=== PATIENT | female | born 1960 | race Two or more races ===

== ENCOUNTER 2019-07-21 16:07 | Outpatient (CLI) | payer OTHER, SELFPAY ==
--- NOTE | ~2019-07-21 | MR_ITS ---
EXAMINATION: MR knee LT wo con DATE: 07/21/2019 17:08 INDICATION: Left knee pain. TECHNIQUE: Magnetic resonance imaging (MRI) of the left knee was performed without intravenous contra st. Sequences included axial PD-weighted FS FSE, coronal PD-weighted FSE and PD-weighted FS FSE, sagi ttal PD-weighted FSE, and sagittal T2-weighted FS FSE. COMPARISON: Left knee radiographs 04/04/2019 FINDINGS: Medial compartment: Medial meniscus is normal. There is cartilage surface irregularity of tibial condyle. There is shallo w partial-thickness cartilage loss of femoral condyle involving the central articular surface. Lateral compartment: Lateral meniscus is normal. Lateral compartment cartilage is normal. Patellofemoral compartment: There is cartilage surface irregularity of patellar medial and lateral facets and median ridge. There is cartilage surface irregularity of medial trochlea. Ligaments and tendons: There is thickening and increased signal involving anterior cruciate ligament, consistent with mucoid degeneration. Posterior cruciate ligament is normal. Medial collateral ligament is normal. There are changes of prior sprain of fibular collateral ligament characterized by thickening and increased sig nal intensity proximally. The patellar tendon is normal. Fluid: There is a small knee joint effusion. There is a small Morse's cyst. There is mild superficial infrap atellar bursitis. IMPRESSION: 1. 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 2. Small knee joint effusion. 3. Small Morse's cyst. Reviewed, dictated and finalized at location A.
== END 2019-07-21 16:08 | disposition home or self-care (01) ==
LOC: ANHIMG 16:19
PROVIDERS: PCP Physician Assistant; Visit Provider Orthopaedic Surgery
DX: M25.462 Effusion, left knee (principal); M71.22 Synovial cyst of popliteal space [Baker], left knee
CPT/HCPCS: 73721

== ENCOUNTER 2020-04-17 10:00 | Outpatient (RCR) | payer OTHER, SELFPAY ==
--- NOTE | 2020-03-20 11:30 | PTOPEVAL ---
Thank you for referring Lexi Martinez to [facility].? The patient is scheduled to be seen for therapy? 2 x/week for 6-8 weeks. Please review, sign, date and return this plan of care WALTER. I agree with and certify that the following plan of care is medically necessary. Referring Physician Date Referring Provider: Dr. Blayne Morse MD *PT Outpatient Evaluation Start: 03/20/20 08:14 Freq: Status: Active Protocol: Document 03/20/20 08:18 CHARI (Rec: 03/20/20 09:07 CHARI [id number]) Therapy Assessment Status Assessment Status Assessment Status Evaluation Outpatient Past Medical History Past Medical History Source of Past Medical History Patient,Recalled from Previous Visit, Confirmed with Patient /Family Neurological History Hx Neurological Disorders No Significant History Cardiovascular History Hx Hypertension Yes Respiratory History Hx Respiratory Disorders No Significant History Musculoskeletal History Hx Fractures Yes: right ankle 10/08/19 Hx Orthopedic Surgery Yes: s/p ORIF 10/26/19 Hematological History Hx Hematological Disorders No Significant History Endocrine History Hx Endocrine Disorders No Significant History Evaluation Information Problem Diagnosis right trimalleolar fracture Onset October 07 Cause fall Additional Evaluation Detail s/p ORIF 10/26/19. She is was originally using walker, crutches, knee scooter ,but currently not using a device. She was initially in a walking boot. Subjective Information She reports she was attempting Query Text:As Reported By Patient/ to clean windows when she Family fell. She is limited with her ability to stand, walk and perform daily task. She works at home but is unable to perform her normal household activities. She elevates her leg most of the day. She is wearing compression sock on right LE for the swelling. She will ice the ankle daily. Prior Level of Function Activity Level (Last 3 Months) Activity of Daily Living Ability Independent Indoor/Home Mobility Independent Community Mobility Independent Stairs Ability Independent Cooking Yes Cleaning
--- NOTE | 2020-04-13 09:30 | PCPTNOTE ---
Patient called & cancelled scheduled appointment this date due to no transportation.
--- NOTE | 2020-04-17 11:09 | PTOPEVAL ---
Thank you for referring Lexi Martinez to [facility].? Pt has received 7 therapy visits to address her ankle impairments as a result of her ankle surgery. She demonstrates improved ankle range, leg strength, and improved functional mobility. She has achieved 80% of her therapy goals at this time. Pt has requested to continue with her HEP due to limitations with ability to attend therapy visits. Will hold chart open for 30 days, then DC if she does not return. Please review, sign, date and return this plan of care WALTER. I agree with and certify that the following plan of care is medically necessary. Referring Physician Date Referring Provider: Dr. Blayne Morse MD *PT Outpatient Evaluation Start: 03/20/20 08:14 Freq: Status: Active Protocol: Document 04/17/20 10:00 CAP (Rec: 04/17/20 10:50 CAP [id number]) Therapy Assessment Status Assessment Status Assessment Status Re-evaluation Outpatient Past Medical History Past Medical History Source of Past Medical History Patient,Recalled from Previous Visit, Confirmed with Patient /Family Neurological History Hx Neurological Disorders No Significant History Cardiovascular History Hx Hypertension Yes Respiratory History Hx Respiratory Disorders No Significant History Musculoskeletal History Hx Fractures Yes: right ankle 10/08/19 Hx Orthopedic Surgery Yes: s/p ORIF 10/26/19 Hematological History Hx Hematological Disorders No Significant History Endocrine History Hx Endocrine Disorders No Significant History Evaluation Information Problem Diagnosis right trimalleolar fracture Onset October 07 Cause fall Additional Evaluation Detail s/p ORIF 10/26/19. She is was originally using walker, crutches, knee scooter ,but currently not using a device. She was initially in a walking boot. Subjective Information She reports improved ability Query Text:As Reported By Patient/ to perform standing, walkin Family and perform daily task. She is wearing her compression sock on LE's. She is performing HEP 100 reps. She is able to perform community mobility without restrictions. She will ice the ankle daily. Pain Assessment Timing of Pain Assessment Timing of Pain Assessment Re-assessment Pain Scale Pain Scale Used Numeric (1 - 10) Self Report Pain Assessment Left Ankle(s) Reported Pain Level 3 Pain Description
== END 2020-06-15 09:34 | disposition home or self-care (01) ==
LOC: ANHPT 10:00
PROVIDERS: PCP Physician Assistant
DX: S82.851D Displaced trimalleolar fracture of right lower leg, subsequent encounter for closed fracture with routine healing (principal)
CPT/HCPCS: 97110; 97112; 97140; 97162; 97530

== ENCOUNTER 2022-09-24 15:33 | Emergency (ER) | payer OTHER, SELFPAY ==
[2022-09-24] VITALS (8 sets, daily range): BP systolic 109–146; BP diastolic 67–78; PULSE 72–79; RESP 15–18; TEMP 36.5; O2SAT 96–100
--- NOTE | 2022-09-24 15:38 | PC.NURSE ---
Patient reports her L eye has been bothering her as well since Thursday.
--- NOTE | 2022-09-24 17:05 | ED.HA ---
HPI - Headache General Chief Complaint: Headache Stated Complaint: LEFT SIDED HEADACHE/ LEFT EYE HEAVINESS Time Seen by Provider: 09/24/22 16:17 History of Present Illness HPI Narrative: Patient is a 61-year-old female with a history of hypertension, diabetes presenting with a headache. Patient states that she had a left-sided headache over the weekend that resolved for couple of days. States that she had several episodes of diarrhea 2 days ago. States this is resolved. Today she again had a left-sided headache and her left eye felt heavy. She took ibuprofen and Tylenol without relief. Her daughter called her PCP who advised that she come to the ER. No numbness or weakness, facial droop, speech changes, vision changes, chest pain, shortness of breath, abdominal pain, nausea or vomiting, leg swelling. Related Data Allergies Allergy/AdvReac Type Severity Reaction Status Date / Time No Known Allergies Allergy Unknown Unverified 03/17/17 03:06 Review of Systems Review of Systems: All systems reviewed & are unremarkable except as noted in HPI and below PMFSH Social History Social History Smoking status: Never smoker Alcohol intake: never Exam Narrative: GENERAL: Well-appearing, well-nourished, and in no acute distress. HEAD: Normocephalic, atraumatic. EYES: PERRLA and EOMI. ENT: Nares clear, no rhinorrhea or epistaxis. Mucous membranes moist. NECK: Supple. CHEST: No respiratory distress. HEART: Regular rate and rhythm ABDOMEN: Soft, nontender, nondistended EXTREMITIES: Normal range of motion. No edema. SKIN: Warm, dry, no rash. NEURO: No focal deficits. Alert and oriented x3. PSYCH: Normal mood and affect. Course Vital Signs Vital signs: Vital Signs Temperature 97.7 F 09/24/22 15:35 Pulse Rate 79 09/24/22 15:35 Respiratory Rate 16 09/24/22 15:35 Blood Pressure 146/72 H 09/24/22 15:35 Pulse Oximetry 99 09/24/22 15:35 Oxygen Delivery Room Air 09/24/22 15:35 Temperature 97.7 F 09/24/22 15:35 Pulse Rate 76 09/24/22 19:22 Respiratory Rate 15 09/24/22 19:22 Blood Pressure 122/78 09/24/22 19:22 Pulse Oximetry 100 09/24/22 19:22 Oxygen Delivery Room Air 09/24/22 15:35 MDM - Headache MDM Narrative Medical decision making narrative: Patient is a 61-year-old female presenting with a left-sided headache for 1 day. Patient is mildly hypertensive, otherwise vitals are within normal limits. Exam is unremarkable. Neurologically intact. Do not feel imaging is warranted at this time. We will start with fluids, Toradol. Blood work is unremarkable. No leukocytosis. Electrolytes are normal. Normal renal function. Patient states that her pain has resolved following the fluids and Toradol. States that she feels well other than feeling a bit cold. She feels comfortable going home. Advised that she follow-up closely with her PCP. Recommended she try to increase her fluid intake. Tylenol and ibuprofen for pain control. Strict return precautions given. Patient voiced understanding and is agreeable with plan. Discharged in stable condition. Differential Diagnosis Differential diagnosis: Likely migraine, headache and other (dehydration, viral infection) Medical Records Attestation: I reviewed the patient's medical records. Lab Data Attestation: I reviewed the patient's lab results. 09/24/22 17:13 09/24/22 17:13 Labs: Lab Results 09/24/22 Range/Units 17:13 WBC 4.7 (4.5-10.0) K/mm3 RBC 4.03 L (4.2-5.4) M/mm3 Hgb 12.0 (12.0-15.0) g/dL Hct 35.4 L (37.0-47.0) % MCV 87.8 (80-100) fl MCH 29.8 (26-34) pg MCHC 33.9 (32-36) g/dl RDW 13.3 (11.5-14.5) % Plt Count 198 (150-375) k/mm3 MPV 10.6 H (7.4-10.4) fl Immature Gran % (Auto) 1.3 H (0-0.5) % Neut % (Auto) 38.2 L (45.5-73.1) % Lymph % (Auto) 46.5 H (18.3-44.2) % Pershing % (Auto) 8.0 (2.6-
[2022-09-24] MEDS: SODIUM CHLORIDE 0.9% IV 1,000 ML 999 ML IV CONT (17:08)
[2022-09-24] MEDS: KETOROLAC 15 MG/ML VIAL (*BKC) IV PUSH (17:14)
[2022-09-24 17:23] LABS: Basophils Absolute Auto 0.1 K/mm3 (0.0-0.1); Basophils Percent Auto 1.1 % (0.2-1.2); Eosinophils Absolute Auto 0.2 K/mm3 (0-0.3); Eosinophils Percent Auto 4.9 % (0-4.4); Hematocrit 35.4 % (37.0-47.0); Immature Granulocyte Absolute 0.06 K/mm3 (0.00-0.031); Immature Granulocyte Percent A 1.3 % (0-0.5); Lymphocytes Percent Auto 46.5 % (18.3-44.2); Mean Corpuscular HGB Conc 33.9 g/dl (32-36); Mean Corpuscular Hemoglobin 29.8 pg (26-34); Mean Corpuscular Volume 87.8 fl (80-100); Mean Platelet Volume 10.6 fl (7.4-10.4); Monocytes Absolute Auto 0.4 K/mm3 (0.1-0.6); Neutrophils Absolute Auto 1.8 K/mm3 (1.3-6.7); Neutrophils Percent Auto 38.2 % (45.5-73.1); Platelet Count Result 198 k/mm3 (150-375); Red Blood Count 4.03 M/mm3 (4.2-5.4); Red Cell Distribution Width 13.3 % (11.5-14.5); White Blood Count 4.7 K/mm3 (4.5-10.0)
[2022-09-24 17:34] LABS: Alanine Aminotransferase 40 U/L (6-35); Albumin Level 3.8 g/dL (3.5-5.1); Alkaline Phosphatase 66 U/L (38-126); Anion Gap 8 mmol/L (8-16); Aspartate Amino Transferase 30 U/L (14-36); Bilirubin,Total 0.5 mg/dL (0.2-1.3); Blood Urea Nitrogen 8 mg/dL (7-17); Calcium 8.3 mg/dL (8.4-10.2); Carbon Dioxide 24 mmol/L (22-30); Chloride 109 mmol/L (98-107); Estimated CRCL calculation 86 ml/min; Estimated Glomerular Filt Rate > 60; Glucose 140 mg/dL (65-110); Potassium 3.5 mmol/L (3.4-5.0); Sodium 141 mmol/L (137-145)
== END 2022-09-24 19:23 | disposition home or self-care (01) ==
PROVIDERS: Emergency Provider Emergency Medicine; PCP Physician Assistant
DX: R51.9 Headache, unspecified (principal); I10 Essential (primary) hypertension; E11.9 Type 2 diabetes mellitus without complications
CPT/HCPCS: 36415; 80053; 85025; 96361; 96374; 99284; J1885; J7030

== ENCOUNTER 2023-11-24 15:45 | Outpatient (CLI) | payer OTHER, SELFPAY ==
--- NOTE | ~2023-11-24 | XR_ITS ---
EXAM: XR shoulder RT min 2V DATE: 11/24/2023 16:04 HISTORY: SHOULDER PAIN , RT, FELL 3 YEARS AGO PAIN SINCE THEN . COMPARISON: None available. FINDINGS: Normal mineralization. No fracture or dislocation. No lytic or blastic lesion. Mild AC fabby nt and moderate glenohumeral joint degenerative change. No erosion or periosteal change. Soft tissues within normal limits. IMPRESSION: Polyarticular right shoulder osteoarthritis. Reviewed, dictated and finalized at location K.
== END 2023-11-24 15:46 | disposition home or self-care (01) ==
LOC: ANHIMG 15:49
PROVIDERS: PCP Physician Assistant Medical; Visit Provider Physician Assistant Medical
DX: M19.011 Primary osteoarthritis, right shoulder (principal)
CPT/HCPCS: 73030

== ENCOUNTER 2024-03-07 15:30 | Outpatient (RCR) | payer OTHER, SELFPAY ==
--- NOTE | 2024-02-15 17:35 | OPREHPOC ---
Outpatient Therapy Plan of Care This is a Multidisciplinary Plan of Care that may contain components documented by all disciplines (PT, OT, and ST.) PT Problem 1 PT Problem #1 Knowledge Deficit PT Goal 1 Goal / Goal Update Patient to be independent with HEP for shoulder girdle strengthening. Target Visit 2 PT Problem 2 PT Problem #2 Pain PT Goal 1 Goal / Goal Update Report no pain with overhead reach of 5# Target Visit 5 PT Problem 3 PT Problem #3 Impaired Strength PT Goal 1 Goal / Goal Update Improve R shoulder external rotation strength to 5 /5 for improved shoulder stability Target Visit 5 PT Goal 2 Goal / Goal Update Report consistency of 0/10 pain with sleeping for 2+ weeks Target Visit 5
--- NOTE | 2024-02-15 17:35 | PTOPEVAL1 ---
Assessment and note entered by Rajat Dave, PT Evaluation Information Assessment Status Evaluation Diagnosis Rotator cuff tear of right shoulder ICD-10 Condition Codes (PT) M25.511 Onset December 2023 Subjective Information Reports that she started having shoulder problems after her ankle surgery. She had increased strain on shoulder and now has a lot of pain in the biceps and anterior shoulder. She had an MRI and an injection. She feels like the injection helped a lot. She is not having pain like before, but she is seeing pain down to her elbow. She is not having pain at night following the injection. She is right handed. Reported Pain Level Pain Score 3: Self Report Assessment PT Clinical Summary Patient presents with minimal loss of shoulder ROM this date. She does have some pain at end range of flexion and external rotation which is present in the proximal longhead of biceps. Patient has some signs and symptoms of impingement but seems to have significant improvement from the cortisone injection this date. My concern is that with her structural history from MRI there is a possibility of underlying structural condition that is masked by the anti inflammatory. Patient will benefit from gradual shoulder strengthening and postural training program to ensure parts counterman functional progress and reduce need for possible surgical intervention. Plan of Care Interventions Electrical Stimulation,Hot Pack/Cold Pack,Manual Therapy,Neuro Re-education,Therapeutic Activities, Therapeutic Exercise PT Services Indicated Yes Treatment Frequency and 1-2x/week for 5 visits Duration These treatments will address the objective and functional deficits as defined above. The patient will be advanced safely and appropriately in order for the patient to progress towards his/her prior level of function. Additional exercises will be introduced and as well as a comprehensive home exercise program upon discharge, if needed, ?to ensure carryover of functional gains achieved in the clinic. This treatment plan has been reviewed and agreement upon by the patient.
--- NOTE | 2024-03-16 14:01 | PCPTNOTE ---
today's reevaluation appointment was canceled due to insurance issues, the authorization time frame/period has ended.
--- NOTE | 2024-04-15 10:58 | PTOPDC ---
Assessment and note entered by Kathy Pendleton, PT Discharge Report Assessment Status Discharge - Pt Not Present Diagnosis Rotator cuff tear of right shoulder ICD-10 Condition Codes (PT) M25.511 Onset December 2023 Subjective Information pt was not seen this date Assessment PT Clinical Summary Lexi has received 4 PT sessions, from February 14 to . There were issues with her insurance and she did not return for any additional treatments. Discharge PT. The goals were not addressed. Plan of Care PT Services Indicated No
== END 2024-04-15 11:30 | disposition home or self-care (01) ==
LOC: ANHPT 15:30
PROVIDERS: PCP Physician Assistant Medical; Visit Provider Orthopaedic Surgery
DX: M75.101 Unspecified rotator cuff tear or rupture of right shoulder, not specified as traumatic (principal); M19.011 Primary osteoarthritis, right shoulder; M75.81 Other shoulder lesions, right shoulder
CPT/HCPCS: 97110; 97140; 97161; 97530